=== PATIENT | female | born 1940 | race Two or more races ===

== ENCOUNTER 2020-03-12 06:10 | Day surgery (SDC) | payer OTHER ==
[~2020-03-12 06:10] MED LIST: ISORBIDE PO; LEVOXIL PO; LOSARTAN POTASS25 MG PO; TEMAZEPAM15 MG PO
[2020-03-12] MEDS ORDERED: ULTRACET PO (10:03)
[2020-03-12] MEDS ORDERED: RECTICARE30 GM TOP (10:03)
== END 2020-03-12 20:33 | disposition home or self-care (01) ==
LOC: CIR.AMB 06:10
PROVIDERS: ATTEND Surgery
DX: K64.8 Other hemorrhoids (principal); Z20.828 Contact with and (suspected) exposure to other viral communicable diseases